=== PATIENT | female | born 1970 | race Caucasian/White ===

== ENCOUNTER 2016-09-23 17:46 | Emergency (ER) ==
[2016-09-23] MEDS ORDERED: ASPIRIN ONE (18:11)
[2016-09-23] MEDS ORDERED: ASPIRIN PO ONE (18:13)
--- NOTE | 2016-09-23 18:29 | EKG Report ---
Test Performed on : 09/23/2016 6:00:45 PM Test Reason : CP Blood Pressure : / mmHG Vent. Rate : 098 BPM Atrial Rate : 098 BPM P-R Int : 142 ms QRS Dur : 076 ms QT Int : 338 ms P-R-T Axes : 013 045 046 degrees QTc Int : 431 ms Normal sinus rhythm. Normal ECG When compared with ECG of 08-FEB-2013 15:39, No significant change was found Unconfirmed Result
[2016-09-23 18:45] LABS: MANUAL DIFF NEEDED? NO
[2016-09-23 19:05] LABS: AGAP 11; ALBUMIN 4.3 g/dL (3.5-5.0); ALKALINE PHOSPHATASE 68 U/L (32-104); BUN 14 mg/dL (8-22); CALCIUM 9.3 mg/dL (8.8-10.2); CHLORIDE 102 mmol/L (98-107); CK PROFILE 84 U/L (24-173); COSMO 272; GOT 18 U/L (10-30); GPT 9 U/L (10-36); POTASSIUM 3.8 mmol/L (3.5-5.1); SODIUM 136 mmol/L (136-145); TCO2 23 mmol/L (25-35); TOTAL PROTEIN 7.1 g/dL (6.3-8.3)
[2016-09-23 19:06] LABS: BASO% 0.2 % (0.0-0.8); HEMATOCRIT 39.9 % (37.0-47.0); HEMOGLOBIN 13.2 g/dL (12.0-16.0); IMM GRAN# 0.02 X1000 (0.0-0.04); IMM GRAN% 0.2 % (0.0-0.5); INR 1.08 (0.86-1.15); LYMPH# 1.94 X1000 (1.2-3.4); LYMPH% 20.4 % (20.5-51.1); MCH 28.7 PG (27-31); MCHC 33.1 g/dL (33-37); MCV 86.7 FL (81-99); MONO# 0.54 X1000 (0.11-0.59); MONO% 5.7 % (1.7-9.3); NEUT% 72.5 % (42.2-75.2); PLT 345 X1000 (130-400); PROTIME 14.3 Seconds (12.1-15.5)
[2016-09-23 19:07] LABS: PTT PL 30.5 Seconds (22.6-43.9)
--- NOTE | 2016-09-23 19:23 | PROVIDER DOCUMENTATION ---
HPI-Chest Pain - General Source: patient - History of Present Illness-CP Location: reports: other (left upper anterior chest) Chest Pain Radiation: reports: no radiation Quality of Pain: reports: sharp, stabbing Severity in ED: mild Onset/Duration: other (2 weeks) Timing: intermittent, getting worse Modifying Factors: improves with: nothing Nitro Today/Relief: no nitro taken today Aspirin Treatment Today: 325 mg x 1, provided by ED Prior Chest Pain/Cardiac Workup: reports: other (calcium score 6-8 years ago) Similar Symptoms Previously?: No Recently Seen Here or By Another Healthcare Provider: No <Lala Nix - Last Filed: 09/23/16 19:46> <Stanislav Callahan - Last Filed: 09/23/16 20:39> - General Chief Complaint: Chest Pain Stated Complaint: CHEST PAIN Time Seen by Provider: 09/23/16 19:18 Allergies/Adverse Reactions: Patient Allergies Allergy/AdvReac Type Severity Reaction Status Date / Time morphine AdvReac Intermediate ITCHING Verified 09/23/16 17:52 Home Medications: Home Medication List Medication Instructions Recorded Confirmed Last Taken Type No Home Medications 09/23/16 09/23/16 Unknown History - History of Present Illness-CP Nature of Presenting Problem: 46 year old F presents to the ED with a cc of left anterior chest pain intermittently x2 weeks. PT states for the last 2 weeks she has had some type of pain but states that it got worse when at the gym tonight. Pt states that she has lifted weights twice in 2 weeks but does not believe it could be related. PT denies SOB, radiation, nausea, or vomiting. PT states that both her mother and sister have had heart attacks. PT states that she had a calcium scan 6-8 years ago and has not seen Dr. Joyner since then. (Lala Nix) Review of Systems - Adult - REVIEW OF SYSTEMS - ADULT Constitutional: denies: chills, fever Eyes: reports: no symptoms reported Ears, Nose, Mouth & Throat: reports: no symptoms reported Cardiovascular: reports: chest pain. denies: palpitations Respiratory: denies: cough, shortness of breath Gastrointestinal: denies: abdominal pain, nausea, vomiting Genitourinary: reports: no symptoms reported Musculoskeletal: denies: back pain, neck pain Integumentary: denies: skin sores/ulcer, skin thickening Neurological: reports: no symptoms reported Psychiatric: reports: no symptoms reported Endocrine: reports: no symptoms reported Hematologic/Lymphatic: reports: no symptoms reported Allergic/Immunologic: reports: no symptoms reported All Other Systems: Reviewed and Negative <Lala Nix - Last Filed: 09/23/16 19:46> Past History - Adult - PAST MEDICAL HISTORY-ADULT Review of Records: reports: Nursing Assessment Review, Medications Reviewed Major Childhood Illnesses: reports: denies history Cardiovascular: reports: HTN Gastrointestinal: reports: GERD Genitourinary: reports: kidney stones - PRIOR SURGERIES/PROCEDURES Surgical/Procedure History: reports: appendectomy, EGD, cholecystectomy, hysterectomy, BTL - IMMUNIZATION STATUS Childhood Immunizations: See Nurse Assessment Flu Vaccine: See Nurse Assessment - FAMILY HISTORY Family History: CAD under 55yo - SOCIAL HISTORY Smoking: non-smoker Substance Use: none/never Alcohol Use Frequency: never <Lala Nix - Last Filed: 09/23/16 19:46> Physical Exam-General - PHYSICAL EXAM-ADULT Initial Vital Signs Reviewed: Yes - CONSTITUTIONAL General Appearance: appears well, alert, no apparent distress - RESPIRATORY Respiratory: lungs clear, normal breath sounds, other (left upper anterior chest , mildly tender but pain not reproducable) - CARDIOVASCULAR Cardiovascular: normal peripheral pulses, regular rate, rhythm, no edema - GASTROINTESTINAL (ABDOMEN) Abdominal Exam: non tender, soft - MUSCULOSKELETAL Extremity: normal inspection, no pedal edema - SKIN Integumentary: normal color, normal turgor, warm/dry - PSYCHIATRIC Psych/Mental Status: normal mood/affect, normal thought content, normal thought process, oriented x 3 <Lala Nix - Last Filed: 09/23/16 19:46> Progress - EKG 1 Time of EKG reading by physician:: 18:00 EKG Read and Signed by:: Stanislav Callahan EKG Interpretation (*Must complete 3 of following elements*): Normal Rate: 98 Rhythm: NSR [place]: normal - XRAY 1 XRAY Study: Chest Impression: Normal XRAY Interpretation: NAD: Dr. Callahan- ISAAC ROMERO <Lala Nix - Last Filed: 09/23/16 19:46> Departure <Lala Nix - Last Filed: 09/23/16 19:46> - Departure Time of Disposition Order: 20:36 Certified Medical Emergency: Emergent <Stanislav Callahan - Last Filed: 09/23/16 20:39> - Departure DIAGNOSIS: Chest pain, atypical Disposition: HOME 01 Condition: Stable Additional Instructions: see maria gandhi or alycia in am for office visit ED Follow Up Instructions: You have been treated by a care provider in the Emergency Department. These instructions are being provided to you so you can have an understanding of how to care for yourself upon discharge. Upon discharge from the Emergency Department, you are responsible for making arrangements for follow-up care by a physician of your choice. Take all prescribed medications as directed. Return to the Emergency Department immediately for any new or worsening symptoms. You may call the Physician Referral phone number at [phone] to obtain a list of Physicians who are taking new patients. Referrals: Faisal Brady [Primary Care Provider] - Attestation - Scribe Verification/Attestation Scribe:: Lala Nix Acting as Scribe for:: Stanislav Callahan Scribe documention review:: This chart was documented by a scribe and accurately reflects the service the provider performed and the decisions made by the provider. <Lala Nix - Last Filed: 09/23/16 19:46> Physician Attestation - Physician Attestation I, the provider, attest to the following statement:: Stanislav Callahan Physician documentation Attestation:: This documentation recorded by the scribe accurately reflects the service I personally performed and the decisions made by me. <Lala Nix - Last Filed: 09/23/16 19:46>
[2016-09-23] MEDS ORDERED: G.I. COCKTAIL PO ONE (19:36)
[2016-09-23] MEDS ORDERED: TORADOL PO ONE (19:36)
[2016-09-23] MEDS ORDERED: LOPRESSOR PO ONE (20:44)
[2016-09-23 20:55] VITALS: BP 155/107
--- NOTE | 2016-09-24 07:57 | Diag Imaging Result Document ---
PROCEDURE NAME: CHEST-2 VIEWS - 09/23/2016 FRONTAL AND LATERAL CHEST, TWO VIEWS: COMPARISON: Compared to 02/08/2013. FINDINGS: The lungs are well expanded. The heart is not enlarged. The vessels are not distended. No pneumonia. No pleural effusions. No free air beneath the diaphragm. IMPRESSION: No acute abnormality.
== END 2016-09-23 20:57 | disposition home or self-care (01) ==
LOC: P.ED 17:46
DX: R07.89 Other chest pain (principal); I10 Essential (primary) hypertension; Z87.442 Personal history of urinary calculi; Z82.49 Family history of ischemic heart disease and other diseases of the circulatory system
CPT/HCPCS: 71020; 80053; 82550; 83735; 83880; 84484; 85025; 85379; 85610; 85730; 93005